=== PATIENT | male | born 1980 | race Caucasian/White ===

== ENCOUNTER 2024-11-07 16:35 | Emergency (ER) | payer OTHER, SELFPAY ==
[2024-11-07 16:45] VITALS: BP 140/90; PULSE 118; RESP 18; TEMP 38.3; O2SAT 98
--- NOTE | 2024-11-07 17:14 | ED.URI ---
HPI - URI/Sore Throat General Chief Complaint: Upper Respiratory Infection Stated Complaint: body aches/ cough Time Seen by Provider: 11/07/24 17:06 Source: patient and RN notes reviewed Mode of arrival: ambulatory Limitations: no limitations History of Present Illness HPI Narrative: 44-year-old male presented for complaint of nasal congestion, body aches, cough and chest congestion. Cough started 6 days ago and body aches have been for the past few days. Reports pressure behind the eyes. He tested negative for COVID and flu at home today. Family has been sick with similar symptoms. Denies shortness of breath, wheezing nausea vomiting, diarrhea or lethargy. MD elicited complaint: cough Related Data Allergies Allergy/AdvReac Type Severity Reaction Status Date / Time No Known Allergies Allergy Unverified 11/07/24 16:49 Review of Systems Review of Systems: per HPI [facility] Social History Social History Smoking status: Never smoker Exam Narrative: GENERAL: Ill-appearing, nontoxic EYES: conjunctivae clear ENT: Mucous membranes moist. TM pearly james with dull light reflex bilaterally; no tragal tenderness. Oropharynx erythematous without lesions or exudate, no drooling, no hoarseness, no trismus, uvula midline. NECK: Supple. No lymphadenopathy CHEST: Clear to auscultation, breath sounds equal. No wheezing, rhonchi, rales, or stridor. No respiratory distress, speaks in full sentences. HEART: Regular rate and rhythm. SKIN: Warm, dry, no rash. NEURO: Alert and oriented x3. PSYCH: Normal mood and affect Course Course Emergency Course: Patient is aware of diagnosis, understands and agrees to treatment plan. Anticipatory guidance given. Patient agrees to follow-up as directed and is aware of reasons to seek care at the emergency department. Portions of this record may have been created with voice recognition software Level of Care: Express Care Visit Vital Signs Vital signs: Vital Signs Temperature 100.9 F H 11/07/24 16:45 Pulse Rate 118 H 11/07/24 16:45 Respiratory Rate 18 11/07/24 16:45 Blood Pressure 140/90 11/07/24 16:45 Pulse Oximetry 98 11/07/24 16:45 Oxygen Delivery Room Air 11/07/24 16:45 Temperature 100.9 F H 11/07/24 16:45 Pulse Rate 118 H 11/07/24 16:45 Respiratory Rate 18 11/07/24 16:45 Blood Pressure 140/90 11/07/24 16:45 Pulse Oximetry 98 11/07/24 16:45 Oxygen Delivery Room Air 11/07/24 16:45 reviewed MDM - URI/Sore Throat MDM Narrative Medical decision making narrative: Discussed physical exam findings; declined retesting for viral illness. Advised supportive measures and signs/symptoms to go to the ER. Pt is appropriate for outpt treatment and f/u. Differential Diagnosis Differential diagnosis: Likely upper respiratory infection, sinusitis and viral infection Discharge Plan Discharge Clinical Impression: Upper respiratory infection Patient Disposition: Home, Self-Care Condition: Stable Instructions: Antibiotic Form, Rhinosinusitis (ED) Additional Instructions: Recommendations: Flonase spray and Zyrtec (or Claritin/Poonam) over the counter Cough syrup may cause drowsiness; avoid driving or take it at night time. Tylenol and ibuprofen every 8 hours as needed for pain Symptomatic treatment includes: rest, fluids, and increase humidity of the air at home. if no improvement you can start the antibiotic Follow up with your primary care provider in 1 week. Go to the ER for worsening symptoms or concerns. Patient Language: Welsh Prescriptions: New amoxicillin-pot clavulanate 875-125 mg tablet 1 tablet PO Q12H 7 Days Qty: 14 0RF Follow-up/Referrals: Nany,Asher Escobedo MD [Primary Care Provider] -
[2024-11-07 17:19] VITALS: PULSE 115; RESP 18; TEMP 38.1
== END 2024-11-07 17:19 | disposition home or self-care (01) ==
PROVIDERS: Emergency Provider Nurse Practitioner Family; PCP Family Medicine
DX: J06.9 Acute upper respiratory infection, unspecified (principal)
CPT/HCPCS: 99213; G0463